=== PATIENT | female | born 1990 | race Caucasian/White ===

== ENCOUNTER → 2019-04-15 13:14 | Outpatient (CLI) | payer MEDICAID, SELFPAY ==
--- NOTE | ~2019-04-15 | US_ITS ---
EXAMINATION: US OB /maternal detail DATE: 04/15/2019 13:52 INDICATION: anatomic survey. TECHNIQUE: Real-time ultrasound of the pelvis was performed. COMPARISON: None. FINDINGS: There is a single living fetus in breech presentation. The placenta is posterior, 2.8 cm from the ce rvix. heart rate is 155 beats per minute (bpm). The amniotic fluid volume is subjectively aman l. The following biometric data were obtained: Biparietal diameter (BPD): 6.2 cm; head circumference (HC): 23.1 cm; abdominal circumference (AC): 21 .1 cm; femur length (FL): 4.5 cm. These measurements are concordant. Estimated weight is 792 g +/- 119 g, which correlates with 53rd percentile when 07/29/19 is used as estimated date of delivery. As single measurements, these parameters are each equal to the following estimated gestational ages w ith ranges of +/- 2 standard deviations: BPD: 25 weeks 2 days (23 weeks 1 days - 27 weeks 3 days). HC: 25 weeks 1 days (23 weeks 0 days - 27 weeks 1 days). AC: 25 weeks 5 days (23 weeks 3 days - 27 weeks 6 days). FL: 24 weeks 6 days (22 weeks 5 days - 26 weeks 6 days). estimated gestational age based solely on measurements from this exam is 25 weeks 2 days +/- 1 weeks 5 days. The cerebral ventricles, cerebellum, cisterna magna, lip, and visualized portions of the spine are no rmal. The heart is normal. The diaphragm, stomach, kidneys, and bladder are normal. There are two umb ilical arteries to yield a 3-vessel cord. The cord insertion is normal. IMPRESSION: 1. Single living fetus in breech presentation. 2. Estimated weight is 792 g +/- 119 g, which correlates with 53rd percentile when 07/29/19 is used as estimated date of delivery. 3. Normal anatomic survey. Reviewed, dictated and finalized at location A. [employer] IMPRESSION: 1. Single living fetus in breech presentation. 2. Estimated weight is 792 g +/- 119 g, which correlates with 53rd perce ntile when 07/29/19 is used as estimated date of delivery. 3. Normal anatomic survey.
== END ==
PROVIDERS: Visit Provider Obstetrics & Gynecology
DX: Z34.90 Encounter for supervision of normal pregnancy, unspecified, unspecified trimester (principal)
CPT/HCPCS: 76805